=== PATIENT | male | born 1950 | race Native Hawaiian/Other Pacific Islander ===

== ENCOUNTER 2025-03-10 07:35 | Day surgery (SDC) | payer MEDICARE, MEDICAID, SELFPAY ==
--- NOTE | 2025-03-07 07:00 | EKG_ITS ---
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
[2025-03-07 07:04] VITALS: BMI 23.6
[2025-03-07 07:45] LABS: Collection Type, Urine Clean Catch; RBC,Urine 0 /hpf (0-3); Squamous Epithelial Cell,Urine 0 /hpf (0-5)
--- NOTE | 2025-03-07 08:12 | SUR.PREOP ---
Pt speaks [place], no court interpreter available thru the phone court interpreter line or in house court interpreter, pt's family was used as court interpreter.
[2025-03-07 08:38] LABS: Basophils % (Auto) 0 % (0-2.5); Eosinophils # (Auto) 0.2 Thou/mm3 (0.0-0.5); Eosinophils % (Auto) 4 % (0-10); Hematocrit 40.6 % (41.0-53.0); Hemoglobin 13.3 g/dL (13.5-16.0); Immature Granulocytes % (Auto) 0 % (0-0); Immature Granulocytes Auto 0.01 Thou/mm3 (0.00-0.00); Lymphocytes # (Auto) 2.2 Thou/mm3 (1.0-4.8); Lymphocytes % (Auto) 41 % (10-50); Mean Corpuscular HGB Conc 32.8 g/dl (31.0-37.0); Mean Corpuscular Hemoglobin 27.4 pg (25.0-35.0); Mean Corpuscular Volume 84 fL (80-100); Monocytes # (Auto) 0.4 Thou/mm3 (0.0-0.8); Monocytes % (Auto) 8 % (0-12); Neutrophils # (Auto) 2.5 Thou/mm3 (1.8-7.7); Neutrophils % (Auto) 47 % (37-80); Nucleated Red Blood Cell % 0 /100 WBC (0); Platelet Count 241 Thou/mm3 (140-440); RDW Standard Deviation 41.9 fL (35.1-43.9); Red Blood Count 4.85 Miln/mm3 (4.50-5.90); White Blood Count 5.4 Thou/mm3 (3.8-10.6)
[2025-03-07 08:45] LABS: Bilirubin,Urine Negative (Negative); Blood,Urine Negative (Negative); Clarity,Urine Clear (Clear/Hazy); Color,Urine Colorless (Lt Yel-Yel); Glucose, Urine Negative (Negative); Ketones,Urine Negative (Negative); Leukocyte Esterase,Urine Negative (Negative); Nitrite,Urine Negative (Negative); PH,Urine 7.5 (5.0-7.0); Protein,Urine Negative (Neg - Trace); Specific Gravity,Urine 1.009 (1.001-1.035); Urobilinogen,Urine Negative mg/dL (0.0-1.0); WBC,Urine < 1 /hpf (0-5)
[2025-03-07 08:50] LABS: Alanine Aminotransferase 15 U/L (10-49); Albumin, Serum 4.5 gm/dL (3.4-4.8); Albumin/Globulin Ratio 1.3 (1.2-2.2); Alkaline Phosphatase 58 U/L (46-116); Anion Gap 6 (7-16); Aspartate Amino Transferase 26 U/L (0-34); BUN/Creatinine Ratio 10 Ratio (12-20); Bilirubin,Total 0.8 mg/dL (0.3-1.2); Blood Urea Nitrogen 13 mg/dL (9-23); Calcium 9.9 mg/dL (8.3-10.6); Calcium (Corrected) 9.9 mg/dL (8.5-10.1); Carbon Dioxide 28.7 mMol/L (20.0-31.0); Chloride 101 mMol/L (98-107); Creatinine (Component) 1.3 mg/dL (0.6-1.3); Globulin 3.4 gm/dL (2.3-3.5); Glucose 112 mg/dL (74-106); Osmolality,Calculated 273 (275-295); Sodium 136 mMol/L (136-145); Total Protein 7.9 gm/dL (5.7-8.2); eGFR 57 See Note
[2025-03-10] VITALS (7 sets, daily range): BP systolic 122–161; BP diastolic 70–84; PULSE 72–83; RESP 12–17; TEMP 36.4–36.8; O2SAT 99–100; BMI 23.5
--- NOTE | 2025-03-10 07:43 | ESHP_ITS ---
RE: DELFINA العلي : 1950 DATE OF ADMISSION: 03/09/2025 HISTORY OF PRESENT ILLNESS: The patient is a 75-year-old male who was referred to me with a history of elevated PSA of 6.9. He has nocturia 3 to 5 times. He has a slow urinary stream. There is no history of gross hematuria. He has some burning. PAST MEDICAL HISTORY: There is no history of diabetes mellitus. He has a history of hypertension. PAST SURGICAL HISTORY: None. HOME MEDICATIONS: He takes 1. Losartan. 2. Finasteride. 3. Pantoprazole. ALLERGIES: NONE KNOWN. SOCIAL HISTORY: He has 4 children. PHYSICAL EXAMINATION: HEENT: Normal. NECK: Supple. LUNGS: Clear. CARDIOVASCULAR: Heart sounds are normal. ABDOMEN: Soft without any organomegaly. No guarding, no rigidity. GENITOURINARY: Phallus is normal. Testes are down in scrotum. RECTAL: Moderately enlarged prostate with some firmness in the right prostatic lobe. EXTREMITIES: Normal. The patient's serum creatinine is 1.43. IMPRESSION: 1. Prostatism. 2. Prostatic obstruction. 2. Elevated PSA of 6.9. PLAN: Cystoscopy, transrectal prostatic ultrasound with ultrasound-guided prostatic needle biopsy. Planned procedure, risks, and complications have been discussed with the patient. The patient has understood them and agreed to proceed. Thank you very much for your kind referral. cc: [facility] DT: 09:22:14 TT: 10:29:00 Ref: [id number] - TID: [id number]
--- NOTE | 2025-03-10 07:55 | SUR.PREOP ---
Patient expressed gratitude for prayer before their procedure.
[2025-03-10] MEDS: RINGERS LACTATED 1000 ML 1,000 ML 20 ML IV (08:25)
--- NOTE | 2025-03-10 10:23 | SUR.PHASEII ---
Pt. arrived to recovery via gurney, eyes open, responds to verbal commands, VSS, no c/o pain or nausea at this time, lung sounds clear, equal expansion melecio., no active bleeding rectally. Report received from Ric FLETCHER and Polo RUIZ.
--- NOTE | 2025-03-10 10:46 | SUR.PHASEII ---
1046 Report received from Cecille Navarro RN
--- NOTE | 2025-03-10 10:46 | SUR.PHASEII ---
Gave report on pt. s/p surgery to Rohini Jonas RN. Pt. is AAOx3, VSS, no c/o pain or nausea at this time, pt. meets criteria for discharge.
--- NOTE | 2025-03-10 11:03 | SUR.PHASEII ---
1103 Patient meets discharge criteria from recovery, awake and alert, breathing unlabored, vital signs stable, denies pain, drinking water; tolerating well, denies nausea, patient assisted with dressing into his clothing by his daughter, patient signed limited proficiency statement for his daughter to interpreter deaf Bela to him, discharge instructions given to patient and patients daughter with daughter interpreting, patients daughter signed discharge instructions. Patient given all his belongings prior to discharge, transported via wheelchair and left in a private vehicle.
--- NOTE | 2025-03-10 13:26 | ESOP_ITS ---
RE: DELFINA العلي : 1950 DATE OF OPERATION: 03/10/2025 PREOPERATIVE DIAGNOSES: Prostatism, prostatic obstruction, elevated PSA of 6.9. POSTOPERATIVE DIAGNOSES: Prostatism, prostatic obstruction, elevated PSA of 6.9. PROCEDURE PERFORMED: Cystoscopy, urethral dilatation, transrectal prostatic ultrasound with ultrasound-guided prostatic needle biopsy. ANESTHESIA: Monitored anesthesia by Mr. Mejia. INDICATION: The patient is a 75-year-old [place] gentleman with an elevated PSA of 6.9. He has nocturia 3 to 5 times. Rectally, he has a moderately sized prostate with some firmness in the right prostatic lobe. The patient was now scheduled to have cystoscopy and transrectal prostatic ultrasound with ultrasound-guided prostatic needle biopsy. Planned procedure, risks, and complications have been discussed with the patient and his daughter. They have understood them and agreed to proceed. DESCRIPTION OF PROCEDURE: After the patient was brought to the operating table under adequate monitored anesthesia and supine position, parts were prepped and draped in the lithotomy position. Parts were prepped and draped in a sterile fashion. A cystoscopy was then carried out, which revealed adequate urethral meatus, normal-appearing urethra, moderately enlarged bilobed prostate with some median lobe enlargement. Residual urine 4 ounces, yellow and clear, and was sent for culture and sensitivity examination. There are no intravesical stones or tumors. There is some outpouching of the bladder on the dome. Scope was withdrawn. The urethra was dilated. The patient was then turned in left lateral position. Transrectal prostatic ultrasound was carried out. Biopsies were obtained from both lobes. Using ultrasound guidance, prostatic volume was measured at 31.9 cubic cm. The patient tolerated the entire procedure well and left the room in good condition. PLAN: We will await the biopsy report. DT: 10:34:41 TT: 13:25:00 Ref: [id number] - TID: [id number]
== END 2025-03-10 11:03 | disposition home or self-care (01) ==
PROVIDERS: Anesthesiology; PCP Family Medicine; Referring Provider Surgery; Visit Provider Surgery
PROC: (CPT 55700; principal; 2025-03-10 09:45)
PROC: 0TJB8ZZ Inspection of Bladder, Via Natural or Artificial Opening Endoscopic (ICD-10-PCS; CPT 52000; 2025-03-10 09:45)
DX: N40.1 Benign prostatic hyperplasia with lower urinary tract symptoms (principal); I10 Essential (primary) hypertension; Z01.810 Encounter for preprocedural cardiovascular examination; R97.20 Elevated prostate specific antigen [PSA]
CPT/HCPCS: 52281; 55700; 36415; 76942; 80053; 81001; 85025; 87086; 93005; A4217; A4649; J0694; J2250; J3010; J7120

== ENCOUNTER 2025-03-11 19:58 | Inpatient (IN) | payer MEDICARE, MEDICAID, SELFPAY ==
[2025-03-11 20:02] VITALS: BMI 23.6
--- NOTE | 2025-03-11 20:21 | EKG_ITS ---
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
--- NOTE | 2025-03-11 20:21 | XR_ITS ---
Examination: PA lateral chest 2 views Technique: Upright PA lateral chest 2 views Exam date and time: March 11, 20252045 hrs. Comparison January 01, 2021 Indications: Shortness of breath fever chills today Findings: Mild prominence left ventricle No pneumonia or pulmonary edema The osseous structures are intact Impression: No active disease
--- NOTE | 2025-03-11 20:21 | PD.EDRME ---
Rapid Medical Screening Exam RME Arrival date/time: 03/11/25 19:58 75 yo m present to ED for c/o sob, chills, recent prostate bx I have greeted and performed a focused initial assessment of this patient. A comprehensive ED assessment and evaluation of the patient, analysis of all test results, and completion of the medical decision making process will be conducted by additional ED providers. Chief Complaint: Shortness of Breath/Dyspnea Time Seen by Provider: 03/11/25 20:19
[2025-03-11 20:22] VITALS: BP 162/52; PULSE 94; RESP 19; TEMP 37.4; O2SAT 96
--- NOTE | 2025-03-11 20:52 | PC.NURSE ---
pt came in because of shaking, sob with some chest pain. pt has a prostate biopsy yesterday. denies any fever at home. pt states with sob pain 5/10. pt present with daughter at bedside
[2025-03-11 20:54] LABS: Basophils % (Auto) 0 % (0-2.5); Eosinophils # (Auto) 0.1 Thou/mm3 (0.0-0.5); Eosinophils % (Auto) 1 % (0-10); Hematocrit 36.9 % (41.0-53.0); Hemoglobin 11.8 g/dL (13.5-16.0); Immature Granulocytes % (Auto) 0 % (0-0); Immature Granulocytes Auto 0.03 Thou/mm3 (0.00-0.00); Lymphocytes # (Auto) 0.7 Thou/mm3 (1.0-4.8); Lymphocytes % (Auto) 7 % (10-50); Mean Corpuscular Hemoglobin 27.5 pg (25.0-35.0); Mean Corpuscular Volume 86 fL (80-100); Monocytes # (Auto) 0.2 Thou/mm3 (0.0-0.8); Monocytes % (Auto) 2 % (0-12); Neutrophils % (Auto) 90 % (37-80); Nucleated Red Blood Cell % 0 /100 WBC (0); Platelet Count 165 Thou/mm3 (140-440); RDW Standard Deviation 42.4 fL (35.1-43.9); Red Blood Count 4.29 Miln/mm3 (4.50-5.90)
[2025-03-11 20:55] LABS: Lactate (Lactic Acid) 1.2 mMol/L (0.4-2.0)
[2025-03-11 21:22] VITALS: TEMP 37.9
[2025-03-11] MEDS: SODIUM CHLORIDE 0.9% 1000 ML 1,000 ML 999 ML IV (21:24)
[2025-03-11 21:36] VITALS: TEMP 37.9
[2025-03-11 21:36] LABS: Alanine Aminotransferase 10 U/L (10-49); Albumin, Serum 4.2 gm/dL (3.4-4.8); Albumin/Globulin Ratio 1.4 (1.2-2.2); Alkaline Phosphatase 55 U/L (46-116); Anion Gap 6 (7-16); Aspartate Amino Transferase 19 U/L (0-34); BUN/Creatinine Ratio 9 Ratio (12-20); Bilirubin,Total 0.6 mg/dL (0.3-1.2); Blood Urea Nitrogen 12 mg/dL (9-23); Calcium 9.2 mg/dL (8.3-10.6); Calcium (Corrected) 9.2 mg/dL (8.5-10.1); Carbon Dioxide 25.7 mMol/L (20.0-31.0); Chloride 104 mMol/L (98-107); Creatinine (Component) 1.3 mg/dL (0.6-1.3); Globulin 3.1 gm/dL (2.3-3.5); Glucose 99 mg/dL (74-106); Osmolality,Calculated 271 (275-295); Potassium 4.4 mMol/L (3.4-5.1); Procalcitonin 0.12 ng/ml (0.0-0.49); Sodium 136 mMol/L (136-145); Total Protein 7.3 gm/dL (5.7-8.2); eGFR 57 See Note
[2025-03-11] MEDS: ACETAMINOPHEN 325 MG TABLET 650 MG PO (21:36)
[2025-03-11 21:37] LABS: Troponin I < 0.020 ng/mL (0.0-0.045)
--- NOTE | 2025-03-11 21:42 | PD.EDSOB ---
ED SOB =RME/HPI General Chief Complaint: Shortness of Breath/Dyspnea Stated Complaint: DYSPNEA Time Seen by Provider: 03/11/25 20:19 Arrival date/time: 03/11/25 19:58 Limitations: no limitations RME / HPI RME / HPI Narrative: 03/11/25 19:58 75 yo m present to ED for c/o sob, chills, recent prostate bx I have greeted and performed a focused initial assessment of this patient. A comprehensive ED assessment and evaluation of the patient, analysis of all test results, and completion of the medical decision making process will be conducted by additional ED providers. Dr. Lee's Main ED Evaluation: 75yo male with a history of HTN, GERD, BPH presents to the ED for a chief complaint of chills and shakiness x 1900. Patient had a prostate biopsy yesterday. Family states the patient was running errands today when he started having shakiness and was unable to hold anything. Patient has been eating normally, but he started having chest pain shortly after the shakiness started. Endorses associated dysuria, but no excessive hematuria. Denies any fever, chills, N/V or any other associated symptoms. No known allergies. Patient is on Cipro, reporting he takes his last dose tomorrow. Related Data Home Medications ?Medication ?Instructions ?Recorded ?Confirmed ciprofloxacin HCl 500 mg tablet 500 mg PO BID 03/07/25 03/11/25 (Cipro) finasteride 5 mg tablet 5 mg PO DAILY 03/07/25 03/11/25 losartan 50 mg tablet 50 mg PO DAILY 03/07/25 03/11/25 pantoprazole 40 mg tablet,delayed 40 mg PO QAM 03/07/25 03/11/25 release (Protonix) acetaminophen 500 mg tablet 1,000 mg PO Q6H PRN pain 03/11/25 03/11/25 Allergies Allergy/AdvReac Type Severity Reaction Status Date / Time No Known Allergies Allergy Verified 03/10/25 08:25 Review of Systems Review of Systems Systems Reviewed: All systems reviewed, normal except as documented Past Medical History Past Medical History NEUROLOGIC: Negative Neurological Disorders or Seizures CARDIAC: Positive Cardiac Disorders and Hypertension; Negative Congestive Heart Failure RESPIRATORY: Positive Tuberculosis (1999 got treated); Negative Chronic Obstructive Pulmonary Disease (COPD) GASTROINTESTINAL: Positive Gastrointestinal Disorders and Gastroesophageal Reflux Disease; Negative Hepatitis GENITOURINARY: Positive Genitourinary Disorders and Benign Prostatic Hyperplasia; Negative Renal Disease MUSCULOSKELETAL: Positive Musculoskeletal Disorders ENT: Positive Cataracts ENDOCRINE: Negative Endocrine Disorders, Diabetes Mellitus Type 1 or Diabetes Mellitus Type 2 HEMATOLOGIC: Negative Blood Disorders OTHER HISTORY: Positive Hospitalization (Tuberculosis 1979), Shingles and Chicken Pox; Negative Autoimmune Disease, Blood Transfusions or Cancer Family History FAMILY HISTORY: Positive Family Cancer and Family Surgery; Negative Family Psychiatric Problems, Family Respiratory Disorders, Family Cardiac Disorders, Family Gastrointestinal Problems or Family Anesthesia Reaction Social History SMOKING STATUS: Never smoker ED Exam General Limitations: Present no limitations General appearance: Present alert and in no apparent distress Head Head exam: Present atraumatic Eye Eye exam: Present normal appearance, PERRL and EOMI ENT ENT exam: Present normal oropharynx and mucous membranes dry Neck Neck exam: Present normal inspection, full ROM and trachea midline Chest Chest inspection: Present normal inspection and symmetric chest wall rise Respiratory Respiratory exam: Present normal lung sounds bilaterally Cardiovascular Cardiovascular exam: Present regular rate, normal rhythm and normal heart sounds Abdominal Exam Abdominal exam: Present soft and normal bowel sounds Extremities Exam Extremities exam: Present normal inspection and full ROM Back Exam Back exam: Present normal inspection and full ROM Neurological Exam Neurological exam: Present alert, oriented X3, CN II-XII intact and other (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 Quality Measures none Orders Category Date Time Status Bedside Influenza A&B Antigen Test NOW Care 03/11/25 20:21 Completed EKG (ED ONLY) *Do not use* NOW Care 03/11/25 20:21 Completed EKG (ED Only) Stat Exams 03/11/25 20:21 Draft XR chest 2V Stat Exams 03/11/25 20:21 Completed Blood Culture (Lab) Stat Lab 03/11/25 20:40 Received CBC Stat Lab 03/11/25 20:40 Completed CMP [Comprehensive Metabolic Panel] Stat Lab 03/11/25 20:40 Completed Lactic Acid [Lactate (Lactic Acid)] Stat Lab 03/11/25 20:22 Completed Procalcitonin Stat Lab 03/11/25 20:40 Completed Troponin I Stat Lab 03/11/25 20:40 Completed UA [Urinalysis] Stat Lab 03/11/25 21:45 Completed Acetaminophen Tab [Tylenol Tab] Med 03/11/25 21:29 Discontinued 650 mg PO X1 ONE Ketorolac Inj [Toradol Inj] Med 03/11/25 22:56 Discontinued 15 mg IVP X1 ONE Sodium Chloride 0.9% 1000 ml [Ns] 1,000 ml Med 03/11/25 21:12 Discontinued IV 999 mls/hr Sodium Chloride 0.9% 1000 ml [Ns] 1,000 ml Med 03/11/25 23:42 Active IV 999 mls/hr Vital Signs Vital signs: Vital Signs Temperature 99.3 F 03/11/25 20:22 Pulse Rate 94 03/11/25 20:22 Respiratory Rate 19 03/11/25 20:22 Blood Pressure 162/52 H 03/11/25 20:22 Pulse Oximetry (%) 96 03/11/25 20:22 Oxygen Delivery Method Room Air 03/11/25 20:22 Shortness of Breath / Dyspnea MDM Narrative MDM Narrative:: Scribe Attestation: 03/11/25 - Teodora eMndes am scribing for and in the presence of Dr. Lee. 2341: Patient states he feels better. His temperature is down to 99.1 after receiving Toradol. Pending consultation with Dr. York, who did the patient's biopsy. 2343: Discussed case with Dr. York from urology regarding consultation. Discussed patients ED course, exam findings, labs, and radiology results. States to admit the patient and start him on Zosyn. 2345: Discussed case with Dr. Parker from Hospitalist service regarding admission. Discussed patients ED course, exam findings, labs, and radiology results. The Hospitalist [agrees] to accept the patient for admission. Patient data External records reviewed:: [facility] previous records (Per chart review, patient was seen here on 08/28/18 for dehydration.) Clinical information provided by:: patient Social determinants that could affect healthcare access:: none Patient has the following chronic illnesses:: HTN, GERD, BPH How is presenting disease/condition affected by chronic disease/condition?: uneffected by Evaluation data The following diagnostics were reviewed and interpreted by me:: lab results, radiology exam(s) and EKG tracing(s) Lab and/or radiology exams considered but not ordered:: none Interpretation Summary: WBC count is normal, CMP is normal, Troponin is normal, Lactic Acid is normal, Procalcitonin is normal, UA shows 5598 RBCs, according to my interpretation. EKG done at 2104, NSR, rate of 89, 1st degree AV block, no ST elevations or depressions, no STEMI, according to my interpretation. [facility] Report Signed Patient: DELFINA العلي. Record#: [id number] Birthdate: 1950 Age/Sex: 75 / M [facility] Att[facility] Dr: Ordering Physician: Vaughn Coleman PA-C Date of Service: 03/11/25 Procedure(s): XR chest 2V Accession Number(s): [id number] cc: Michael Michaels MD; Vaughn Coleman PA-C~ Examination: PA lateral chest 2 views Technique: Upright PA lateral chest 2 views Exam date and time: March 11, 20256 hrs. Comparison January 01, 2021 Indications: Shortness of breath fever chills today Findings: Mild prominence left ventricle No pneumonia or pulmonary edema The osseous structures are intact Impression: No active disease Dictated By: Michael Michaels MD Signed By: <Electronically signed by Michael Michaels MD in OV> 03/11/252050 Medications / Prescriptions Medications or Prescriptions considered but not ordered:: none Medication administrations:: Medication Administration History Sodium Chloride (Ns) 1,000 mls @ 999 mls/hr IV .Q1H1M ONE Stop: 03/12/25 00:42 Discontinued Medications Acetaminophen (Acetaminophen 325 Mg Tablet) 650 mg PO X1 ONE Stop: 03/11/25 21:30 Last Admin: 03/11/25 21:36 Dose: 650 mg Documented By: BD Sodium Chloride (Ns) 1,000 mls @ 999 mls/hr IV .Q1H1M ONE Stop: 03/11/25 22:12 Last Infusion: 03/11/25 22:53 Dose: Infused Documented By: Admin: 03/11/25 21:24 Dose: 999 mls/hr Documented By: BD Ketorolac Tromethamine (Ketorolac Inj 30 Mg/Ml Vial) 15 mg IVP X1 ONE Stop: 03/11/25 22:57 Last Admin: 03/11/25 23:00 Dose: 15 mg Documented By: AMBER see above Consultations Consultation(s) initiated? (list below): Yes Consultation #1 (Physician, Specialty, Details): See MDM. Diagnosis Shortness of Breath Differential Diagnosis: other (UTI, dehydration, occult bacteremia) Most likely diagnosis given after review of the tests above:: see clinical impression below Admission Indicated Admission indicated?: indicated Admission Request Was there a request for admission?: Yes Admission Attestation Admission request attestation: Discussed case with [] from Hospitalist service regarding admission. Discussed patients ED course, exam findings, labs, and radiology results. The Hospitalist [agrees,declines] to accept the patient for admission. Disposition Plan Disposition Plan: Admit Discharge Plan Plan Patient Disposition: Admit Acute Care w/in Hospital Disposition Comment: Admitted to Dr. Parker Prescriptions/Referrals Prescriptions/Med Rec: No Action losartan 50 mg tablet 50 mg PO DAILY Patient Comments: TAKE 1 TABLET BY MOUTH EVERY DAY FOR 90 DAYS pantoprazole [Protonix] 40 mg tablet,delayed release (DR/EC) 40 mg PO QAM finasteride 5 mg tablet 5 mg PO DAILY Patient Comments: TAKE 1 TABLET BY MOUTH EVERY DAY FOR 90 DAYS ciprofloxacin HCl [Cipro] 500 mg tablet 500 mg PO BID acetaminophen 500 mg tablet 1,000 mg PO Q6H PRN (Reason: pain) Patient Comments: TAKE 1 TABLET BY MOUTH EVERY 6 HOURS NEEDED FOR 7 DAYS Referrals: Toby Rhodes MD [Primary Care Provider] - In 1 week Problem List Clinical Impression: UTI (urinary tract infection), Fever, Fever postop Patient/Caregiver Discharge Instructions Print Language: fatuma ronquillo) Stand Alone Forms: [facility]ana Award Info., Patient Portal Info Letter
[2025-03-11 22:00] LABS: Collection Type, Urine Voided
[2025-03-11 22:09] LABS: Bilirubin,Urine Negative (Negative); Blood,Urine 3+ (Negative); Clarity,Urine Turbid (Clear/Hazy); Color,Urine Brown (Lt Yel-Yel); Glucose, Urine Negative (Negative); Ketones,Urine Negative (Negative); Leukocyte Esterase,Urine Positive (Negative); Nitrite,Urine Negative (Negative); PH,Urine 6.5 (5.0-7.0); Protein,Urine Trace (Neg - Trace); RBC,Urine 5598 /hpf (0-3); Specific Gravity,Urine 1.011 (1.001-1.035); Squamous Epithelial Cell,Urine 1 /hpf (0-5); Urobilinogen,Urine Negative mg/dL (0.0-1.0); WBC,Urine 8 /hpf (0-5)
[2025-03-11 22:53] VITALS: TEMP 38.6
--- NOTE | 2025-03-11 22:56 | PC.NURSE ---
pt temp 101.5 notified provider buck
[2025-03-11 23:00] VITALS: BP 145/76; PULSE 93; RESP 18; TEMP 37.3; TEMP 38.6; O2SAT 96
[2025-03-11] MEDS: KETOROLAC INJ 30 MG/ML VIAL 15 MG IVP (23:00)
[2025-03-12] VITALS (9 sets, daily range): BP systolic 111–163; BP diastolic 50–70; PULSE 63–98; RESP 17–20; TEMP 36.3–38.2; O2SAT 92–96; BMI 24.8
[2025-03-12] MEDS: PIPER/TAZO 3.375 GM PREMIX 3.375 GM/50 ML BAG IV ×4 (00:12→21:22)
[2025-03-12] MEDS: SODIUM CHLORIDE 0.9% 1000 ML 1,000 ML 999 ML IV (00:13)
--- NOTE | 2025-03-12 00:17 | EVENTNT_ITS ---
Documentation for date of: 03/12/25 Event Note Event Note: A 75-year-old male presented to the ER with the chief complaint of chills and whole-body shakiness. Symptoms began around 7 PM on Thursday, the day after undergoing a transrectal ultrasound-guided prostate biopsy for an elevated PSA of 6.9. According to family, the patient was in usual health earlier in the day and developed shaking approximately two hours after returning from [facility]. The shaking was significant enough to cause him difficulty holding a cup. He also reported mild generalized weakness. He had been taking ciprofloxacin before and after the biopsy as prophylaxis. The patient has a history of HTN, BPH, and GERD. Current medications include Ciprofloxacin, Finasteride, Losartan, and Pantoprazole. He does not smoke, drink alcohol, or use recreational drugs. He has no prior surgical history and no known drug allergies. He is independent in activities of daily living. This is his second hospital visit in over two decades in the [place] In the ER, vital signs recorded as temp 101.5 ?F, HR 94 bpm, RR 19, BP 162/52 mmHg. Labs showed WBC 10, Hgb 11.8, Plt 165, Na 136, K 4.4, BUN 12, Cr 1.3, and Procalcitonin 0.12. Urinalysis revealed brown urine with WBC 8 and RBC 5598. Urology was consulted and the patient was admitted. #Sepsis (post-TRUS biopsy) Assessment: Fever (101.5 ?F), chills, shaking, post-procedural state; mild leukocytosis (WBC 10), hematuria (UA RBC 5598), pyuria (WBC 8), borderline elevated Cr (1.3), Procalcitonin 0.12 Plan: - Initiate broad-spectrum IV antibiotics - Obtain blood cultures and urine culture - IV hydration - Urology to follow for post-TRUS infectious complication - Monitor for urinary retention or abscess formation #Hypertension Assessment: Chronic; elevated BP on presentation (162/52) without acute end- organ damage Plan: - Continue home losartan #Benign Prostatic Hyperplasia Assessment: Chronic; history of finasteride use, recent TRUS biopsy Plan: - Continue finasteride - Monitor for urinary symptoms, retention, or hematuria
[2025-03-12] MEDS: SODIUM CHLORIDE 0.9% 1000 ML 1,000 ML 75 ML IV (02:07)
--- NOTE | 2025-03-12 02:10 | PD.RESHP ---
Documentation for date of: 03/12/25 HPI History of Present Illness Chief complaint: Chills and shakiness History of present illness: HPI: A 75-year-old male [place]an patient with past medical history of hypertension, GERD, BPH, presented to the ED due to chills and shakiness started at 7 PM on 11 March 2025. His daughter which work at the hospital a RETURN CLERK patient that on Thursday patient underwent prostate biopsy by Dr. York. Other than mild pain and bloody urine patient tolerated the procedure well. However today patient started to feel generalized weakness and severe shakiness. Few hours before presentation patient started to develop low-grade fever. Denied any cough SOB or abdominal pain. In the ER, vital signs recorded as temp 101.5 ?F, HR 94 bpm, RR 19, BP 162/52 mmHg. Labs showed WBC 10, Hgb 11.8, Plt 165, Na 136, K 4.4, BUN 12, Cr 1.3 whcih is his baseline, and Procalcitonin Normal. Urinalysis revealed [place] urine with WBC 8 and RBC 5598. EKG showed 1st degree heart block, CXR was within NML limits, Urology was consulted and the patient was admitted. PMH: As above PSX: As Above Social hx: Alcohol:Denied Tobacco:Denied Illicit drugs:Denied Allergies:NKDA Review of Systems Review of Systems Systems Reviewed: All systems reviewed, normal except as documented Exam Vital Signs Temp Pulse Resp BP Pulse Ox O2 Del Method 99.1 F 93 18 145/76 H 96 Room Air 03/12/25 00:01 03/11/25 23:00 03/11/25 23:00 03/11/25 23:00 03/11/25 23:00 03/11/25 23:00 Narrative Exam GEN: AOx3, able to speak full sentences HEENT: NC/AC, PERRLA, oral mucosa moist, neck supple CVS: RRR, S1-S2 present, no murmurs appreciated RESP: CTAB GI: soft,non distended, Mild Suprapubic tenderness, NBS MSK: able to move all 4 limbs, no lower extremity edema SKIN: warm and dry NUCLEAR MONITORING TECHNICIAN: CN II-XII and Sensation grossly intact. Results: Labs 03/11/25 20:40 03/11/25 20:40 Labs: Short CBC 03/11/25 Range/Units 20:40 WBC 10.0 D (3.8-10.6) Thou/mm3 Hgb 11.8 L (13.5-16.0) g/dL Hct 36.9 L (41.0-53.0) % Plt Count 165 D (140-440) Thou/mm3 BMP 03/11/25 20:40 Sodium 136 Potassium 4.4 Chloride 104 Carbon Dioxide 25.7 BUN 12 Creatinine 1.3 Glucose 99 Calcium 9.2 Cardiac Enzymes 03/11/25 Range/Units 20:40 Troponin I < 0.020 (0.0-0.045) ng/mL Liver Function 03/11/25 Range/Units 20:40 Total Bilirubin 0.6 (0.3-1.2) mg/dL AST 19 (0-34) U/L ALT 10 (10-49) U/L Alkaline Phosphatase 55 (46-116) U/L Albumin 4.2 (3.4-4.8) gm/dL Urine 03/11/25 Range/Units 21:45 Urine Color Brown A (Lt Yel-Yel) Urine Clarity Turbid A (Clear/Hazy) Urine pH 6.5 (5.0-7.0) Ur Specific [place] 1.011 (1.001-1.035) Urine Protein Trace (Neg - Trace) Urine Glucose (UA) Negative (Negative) Quality Measures Quality Measures none Advance care planning discussed with:: patient and child Medications Home Medications and Allergies Home Medications ?Medication ?Instructions ?Recorded ?Confirmed ?Type ciprofloxacin HCl 500 mg tablet 500 mg PO BID 03/07/25 03/11/25 History (Cipro) finasteride 5 mg tablet 5 mg PO DAILY 03/07/25 03/11/25 History losartan 50 mg tablet 50 mg PO DAILY 03/07/25 03/11/25 History pantoprazole 40 mg tablet,delayed 40 mg PO QAM 03/07/25 03/11/25 History release (Protonix) acetaminophen 500 mg tablet 1,000 mg PO Q6H PRN pain 03/11/25 03/11/25 History Allergies Allergy/AdvReac Type Severity Reaction Status Date / Time No Known Allergies Allergy Verified 03/10/25 08:25 Visit Medications Acetaminophen (Acetaminophen 325 Mg Tablet) 650 mg PO Q6H PRN PRN Reason: Fever >101.5 Stop: 04/11/25 00:09 Hydrocodone Bitart/Acetaminophen (Hydrocodone/Apap 5/325 Tablet) 1 tab PO Q6HR PRN PRN Reason: Pain 4-6 Stop: 03/17/25 01:52 Finasteride (Finasteride 5 Mg Tablet) 5 mg PO QDAY [facility] Stop: 04/11/25 08:59 Hydralazine HCl (Hydralazine Inj 20 Mg/Ml Vial) 10 mg IV Q3H PRN PRN Reason: SBP >180mmHg Stop: 04/11/25 01:59 Sodium Chloride (Ns) 1,000 mls @ 75 mls/hr IV .[id number] [facility] Stop: 04/11/25 00:14 Last Admin: 03/12/25 02:07 Dose: 75 mls/hr Piperacillin/Tazobactam/Dextrose (Zosyn) 3.375 gm in 50 mls @ 100 mls/hr IV Q8HR [facility] Stop: 03/19/25 00:10 Last Admin: 03/12/25 00:21 Dose: Not Given Losartan Potassium (Losartan Potassium 25 Mg Tablet) 50 mg PO QDAY [facility] Stop: 04/11/25 08:59 Ondansetron HCl (Ondansetron Inj 2 Mg/Ml Inj 2 Ml) 4 mg IV Q6HR PRN; Protocol PRN Reason: NAUSEA OR VOMITING Stop: 04/11/25 01:52 Polyethylene Glycol (Polyethylene Glycol 17 Gm Packet) 17 gm PO QDAY [facility] Stop: 04/11/25 08:59 Discontinued Medications Acetaminophen (Acetaminophen 325 Mg Tablet) 650 mg PO X1 ONE Stop: 03/11/25 21:30 Last Admin: 03/11/25 21:36 Dose: 650 mg Sodium Chloride (Ns) 1,000 mls @ 999 mls/hr IV .Q1H1M ONE Stop: 03/11/25 22:12 Last Infusion: 03/11/25 22:53 Dose: Infused Sodium Chloride (Ns) 1,000 mls @ 999 mls/hr IV .Q1H1M ONE Stop: 03/12/25 00:42 Last Infusion: 03/12/25 01:37 Dose: Infused Piperacillin/Tazobactam/Dextrose (Zosyn) 3.375 gm in 50 mls @ 100 mls/hr IV X1 ONE Stop: 03/12/25 00:16 Last Infusion: 03/12/25 00:42 Dose: Infused Ketorolac Tromethamine (Ketorolac Inj 30 Mg/Ml Vial) 15 mg IVP X1 ONE Stop: 03/11/25 22:57 Last Admin: 03/11/25 23:00 Dose: 15 mg Assessment & Plan Plan Summary: A 75-year-old male [place]an patient with past medical history of hypertension, GERD, BPH, presented to the ED due to chills and shakiness started at 7 PM on 11 March 2025. patient that on Thursday patient underwent prostate biopsy by Dr. York. Other than mild pain and bloody urine patient tolerated the procedure well. However today patient started to feel generalized weakness and severe shakiness. Patient was admitted for tx of Sepsis 2/2 to UTI A/P #Sepsis 2/2 UTI # UTI (post-TRUS biopsy) #Hx of Benign Prostatic Hyperplasia Patient has recenty had prostate biopsy as he was found to have PSA level of 6.9 as per bulmaro daughter. Patient satrted to develop severe chills and shakiness on Thursday. Fever 101.5, HR of chills, shaking, post-procedural state; mild leukocytosis WBC 10, hematuria UA RBC 5598, pyuria WBC 8, Procalcitonin 0.12, LA 1.2 history of finasteride use Plan: - Start the patient on Zosyn as per Dr Jung Recstanislav - Obtain blood cultures and urine culture - IV NS 75 mL/H - Urology to follow for post-TRUS biopsy infectious complication - Monitor for urinary retention or abscess formation - Continue finasteride - Monitor for urinary symptoms, retention, or hematuria #Hx of Hypertension Assessment: Chronic; elevated BP on presentation (162/52) without acute end-organ damage Plan: - Continue home losartan - Hydralaine 10mg IV PRN #1st Degree heart block EKG showed sinus tachycardia, however [place] interval was 231. Which indicate first-degree heart block. Plan ? Telemonitoring ? Consider repeating EKG in the morning #CKD Stage 3a Patient unaware of his Kidney function CKD, Noticed to have S.cr of 1.3 which is his basline, eGFR of 57 Plan - Avoid nephrotoxic meds - Consider following up with a certified professional midwife o/p #hx of GERD Plan - Start patient on Pantoprazol 40mg IV qday Hospital Maintenance: FEN:Cardiac diet DVT ppx:SCD GI ppx:Protonix IV lines:PIV Prince:None Code status:F/C Dispo:Med-Tele Patient's plan and care discussed with my attending, Dr. Keith Solis MD Internal Medicine PGY-2 Attending Provider Attestation/Addendum Pt was evaluated and plan formulated together with the housestaff team. I have reviewed the residents note above and agree with most of its content. Please refer to the residents note for additional details.
[2025-03-12 06:12] LABS: Basophils % (Auto) 0 % (0-2.5); Eosinophils % (Auto) 0 % (0-10); Hematocrit 32.9 % (41.0-53.0); Hemoglobin 10.6 g/dL (13.5-16.0); Immature Granulocytes % (Auto) 1 % (0-0); Immature Granulocytes Auto 0.08 Thou/mm3 (0.00-0.00); Lymphocytes # (Auto) 0.3 Thou/mm3 (1.0-4.8); Lymphocytes % (Auto) 2 % (10-50); Mean Corpuscular HGB Conc 32.2 g/dl (31.0-37.0); Mean Corpuscular Hemoglobin 27.8 pg (25.0-35.0); Mean Corpuscular Volume 86 fL (80-100); Monocytes # (Auto) 0.4 Thou/mm3 (0.0-0.8); Monocytes % (Auto) 3 % (0-12); Neutrophils # (Auto) 13.6 Thou/mm3 (1.8-7.7); Neutrophils % (Auto) 95 % (37-80); Nucleated Red Blood Cell % 0 /100 WBC (0); Platelet Count 151 Thou/mm3 (140-440); RDW Standard Deviation 42.5 fL (35.1-43.9); Red Blood Count 3.81 Miln/mm3 (4.50-5.90); White Blood Count 14.4 Thou/mm3 (3.8-10.6)
[2025-03-12 06:22] LABS: Glucose Estimated Average 120 mg/dL (80-131); Hemoglobin A1C 5.8 % Hgb (4.8-6.0)
[2025-03-12 06:41] LABS: Anion Gap 9 (7-16); BUN/Creatinine Ratio 12 Ratio (12-20); Blood Urea Nitrogen 16 mg/dL (9-23); Calcium 8.3 mg/dL (8.3-10.6); Carbon Dioxide 22.7 mMol/L (20.0-31.0); Chloride 106 mMol/L (98-107); Creatinine (Component) 1.3 mg/dL (0.6-1.3); Glucose 120 mg/dL (74-106); Osmolality,Calculated 277 (275-295); Potassium 4.7 mMol/L (3.4-5.1); Sodium 138 mMol/L (136-145); eGFR 57 See Note
[2025-03-12] MEDS: FINASTERIDE 5 MG TABLET PO (08:23)
[2025-03-12] MEDS: POLYETHYLENE GLYCOL 17 GM PACKET PO (08:23)
[2025-03-12] MEDS: LOSARTAN POTASSIUM 25 MG TABLET 50 MG PO (08:23)
--- NOTE | 2025-03-12 10:09 | CHAP ---
Patient was visited by the Spiritual Care Volunteer who prayed for them. (Volunteer was in the hospital from 09:22-10:09.)
--- NOTE | 2025-03-12 15:55 | PD.RESPRO ---
Documentation for date of: 03/12/25 Subjective Subjective Interval history: Patient is seen and examined at bedside. Still complaining of some mild pain in the lower abdomen. Vitals are stable. On physical examination, mild tenderness noted in the hypogastric region Labs showed WBC 14.4, Hb 10.6, creatinine 1.3 Will continue antibiotics for now and cultures are still pending Exam Vital Signs Temp Pulse Resp BP Pulse Ox O2 Del Method 98.1 F 83 17 163/70 H 96 Room Air 03/12/25 12:00 03/12/25 12:00 03/12/25 12:00 03/12/25 12:00 03/12/25 12:00 03/12/25 12:00 Narrative Exam General: Awake. HEENT: Normocephalic, atraumatic, mucous membranes moist. Heart: Regular rate and rhythm, no murmurs. Lungs: Clear to auscultation with no wheezing or crackles. Abdomen: Soft, nondistended, mild tenderness in the hypogastric region, positive bowel sounds. ?No guarding or rebound tenderness. Neurologic: Alert and oriented x3, no gross neurological deficit, and patient able to move all 4 extremities. Extremities: No edema. Skin: No rash or ecchymoses. Objective Labs 03/13/25 04:45 03/13/25 04:45 Labs: Laboratory Results - last 24 hr 03/11/25 03/11/25 03/11/25 20:22 20:40 20:40 WBC 10.0 D RBC 4.29 L Hgb 11.8 L Hct 36.9 L MCV 86 MCH 27.5 MCHC 32.0 RDW Std Deviation 42.4 Plt Count 165 D Neut % (Auto) 90 H Lymph % (Auto) 7 L [place] % (Auto) 2 Eos % (Auto) 1 Baso % (Auto) 0 Neut # (Auto) 9.0 H Lymph # (Auto) 0.7 L [place] # (Auto) 0.2 Eos # (Auto) 0.1 Baso # (Auto) 0.0 Immature Gran # (Auto) 0.03 H Absolute Nucleated RBC 0.00 Immature Gran % 0 Nucleated RBC % 0 Sodium 136 Potassium 4.4 Chloride 104 Carbon Dioxide 25.7 Anion Gap 6 L BUN 12 Creatinine 1.3 Estim Creat Clear Calc 46.0 L eGFR 57 L BUN/Creatinine Ratio 9 L Glucose [address] Glu mg/dL Hemoglobin A1c Calculated Osmolality 271 L Lactic Acid 1.2 Calcium 9.2 Corrected Calcium 9.2 Total Bilirubin 0.6 AST 19 ALT 10 Alkaline Phosphatase 55 Troponin I < 0.020 Total Protein 7.3 Albumin 4.2 Globulin 3.1 Albumin/Globulin Ratio 1.4 Procalcitonin 0.12 Cancelled Ur Collection Type Urine Color Urine Clarity Urine pH Ur Specific [place] Urine Protein Urine Glucose (UA) Urine Ketones Urine Blood Urine Nitrite Urine Bilirubin Urine Urobilinogen (Auto) Ur Leukocyte Esterase Urine RBC Urine WBC Ur Squamous Epith Cells Urine Bacteria 03/11/25 03/12/25 21:45 05:20 WBC 14.4 H D RBC 3.81 L Hgb 10.6 L Hct 32.9 L MCV 86 MCH 27.8 MCHC 32.2 RDW Std Deviation 42.5 Plt Count 151 Neut % (Auto) 95 H Lymph % (Auto) 2 L [place] % (Auto) 3 Eos % (Auto) 0 Baso % (Auto) 0 Neut # (Auto) 13.6 H Lymph # (Auto) 0.3 L [place] # (Auto) 0.4 Eos # (Auto) 0.0 Baso # (Auto) 0.0 Immature Gran # (Auto) 0.08 H Absolute Nucleated RBC 0.00 Immature Gran % 1 H Nucleated RBC % 0 Sodium 138 Potassium 4.7 Chloride 106 Carbon Dioxide 22.7 Anion Gap 9 BUN 16 Creatinine 1.3 Estim Creat Clear Calc 46.0 L eGFR 57 L BUN/Creatinine Ratio [address] Glu mg/dL 120 Hemoglobin A1c 5.8 Calculated Osmolality 277 Lactic Acid Calcium 8.3 Corrected Calcium Total Bilirubin AST ALT Alkaline Phosphatase Troponin I Total Protein Albumin Globulin Albumin/Globulin Ratio Procalcitonin Ur Collection Type Voided Urine Color Brown A Urine Clarity Turbid A Urine pH 6.5 Ur Specific [place] 1.011 Urine Protein Trace Urine Glucose (UA) Negative Urine Ketones Negative Urine Blood 3+ A Urine Nitrite Negative Urine Bilirubin Negative Urine Urobilinogen (Auto) Negative Ur Leukocyte Esterase Positive Urine RBC 5598 H Urine WBC 8 H Ur Squamous Epith Cells 1 Urine Bacteria None Quality Measures Quality Measures none Advance care planning discussed with:: patient Assessment & Plan Assessment Current Active Medications: Generic Name Dose Route Start Last Admin Trade Name Freq PRN Reason Stop Dose Admin Acetaminophen 650 mg 03/12/25 00:10 Acetaminophen 325 Mg Tablet PO 04/11/25 00:09 Q6H PRN Fever >101.5 Hydrocodone Bitart/Acetaminophen 1 tab 03/12/25 01:53 Hydrocodone/Apap 5/325 Tablet PO 03/17/25 01:52 Q6HR PRN Pain 4-6 Finasteride 5 mg 03/12/25 09:00 03/12/25 08:23 Finasteride 5 Mg Tablet PO 04/11/25 08:59 5 mg QDAY SUN Administration Hydralazine HCl 10 mg 03/12/25 01:53 Hydralazine Inj 20 Mg/Ml Vial IV 04/11/25 01:59 Q3H PRN SBP >180mmHg Sodium Chloride 1,000 mls @ 75 mls/hr 03/12/25 00:15 03/12/25 02:07 Ns IV 04/11/25 00:14 75 mls/hr .[id number] SUN Administration Piperacillin/Tazobactam/Dextrose 3.375 gm in 50 mls @ 100 mls/hr 03/12/25 00:11 03/12/25 13:51 Zosyn IV 03/19/25 00:10 100 mls/hr Q8HR SUN Administration Losartan Potassium 50 mg 03/12/25 09:00 03/12/25 08:23 Losartan Potassium 25 Mg Tablet PO 04/11/25 08:59 50 mg QDAY SUN Administration Ondansetron HCl 4 mg 03/12/25 01:53 Ondansetron Inj 2 Mg/Ml Inj 2 Ml IV 04/11/25 01:52 Q6HR PRN NAUSEA OR VOMITING Protocol Polyethylene Glycol 17 gm 03/12/25 09:00 03/12/25 08:23 Polyethylene Glycol 17 Gm Packet PO 04/11/25 08:59 17 gm QDAY SUN Administration Plan A 75-year-old male [place] patient with past medical history of hypertension, GERD, BPH, presented to the ED due to chills and shakiness started at 7 PM on 11 March 2025. patient that on Thursday patient underwent prostate biopsy by Dr. York. Other than mild pain and bloody urine patient tolerated the procedure well. However today patient started to feel generalized weakness and severe shakiness. Patient was admitted for tx of Sepsis 2/2 to UTI #Sepsis 2/2 UTI # UTI (post-TRUS biopsy) #Hx of Benign Prostatic Hyperplasia Patient has recenty had prostate biopsy as he was found to have PSA level of 6.9 as per daughter. Patient started to develop severe chills and shakiness on Thursday. Fever 101.5, HR of chills, shaking, post-procedural state; mild leukocytosis WBC 10, hematuria UA RBC 5598, pyuria WBC 8, Procalcitonin 0.12, LA 1.2 history of finasteride use Plan: - Start the patient on Zosyn as per Dr Jaylen Heath - Obtain blood cultures and urine culture - Urology to follow for post-TRUS biopsy infectious complication - Continue finasteride #Hx of Hypertension Assessment: Chronic; elevated BP on presentation (162/52) without acute end-organ damage Plan: - Continue home losartan - Hydralaine 10mg IV PRN #1st Degree heart block EKG showed sinus tachycardia, however [place] interval was 231. Which indicate first-degree heart block. #CKD Stage 3a Patient unaware of his Kidney function CKD, Noticed to have S.cr of 1.3 which is his basline, eGFR of 57 Plan - Avoid nephrotoxic meds - Consider following up with a superintendent distribution o/p #hx of GERD Plan - Start patient on Pantoprazole 40mg IV qday Hospital Maintenance: FEN:Cardiac diet DVT ppx:SCD GI ppx:Protonix IV lines:PIV Prince:None Code status:F/C Dispo:Med-Tele Patient plan of care was discussed with the attending physician, Dr. Everardo Grigsby, PGY1 Attending Provider Attestation/Addendum I attest that I was physically present for the evaluation, physical examination, lab and imaging review of the patient with the residents. I discussed the case with the residents and agree with the findings and plans of care as documented above. Patient is a 75 years old male with past medical history of hypertension, GERD, BPH who presented to the ED with chills and shakiness.? Patient recently underwent prostate biopsy with urology on 03/10/2025.? Patient was then admitted overnight for management of sepsis secondary to UTI in setting of recent urological procedure.? We will continue IV antibiotics, Zosyn.? Patient is on IV fluid.? Cultures are pending, awaiting urology recommendations. Sharita Mcgee MD
[2025-03-12] MEDS: ACETAMINOPHEN 325 MG TABLET 650 MG PO (23:26)
--- NOTE | 2025-03-12 23:35 | PC.NURSE ---
called Dr. Nelson regarding patient having a temperature of 100.8 oral, chills, c/o pain in upper back below the neck that strated when he had the chills. Patient also having bloody urine states little pain when urinating. Patient given tylenol PO for fever and cooling measures. Will reassess patient's temperature and pain, no other new orders received.
[2025-03-13] VITALS (10 sets, daily range): BP systolic 120–158; BP diastolic 56–77; PULSE 52–78; RESP 18–19; TEMP 36.2–38.2; O2SAT 96–98
[2025-03-13 05:34] LABS: Basophils % (Auto) 0 % (0-2.5); Eosinophils % (Auto) 0 % (0-10); Hematocrit 33.6 % (41.0-53.0); Immature Granulocytes % (Auto) 0 % (0-0); Immature Granulocytes Auto 0.04 Thou/mm3 (0.00-0.00); Lymphocytes # (Auto) 0.8 Thou/mm3 (1.0-4.8); Lymphocytes % (Auto) 8 % (10-50); Mean Corpuscular HGB Conc 32.7 g/dl (31.0-37.0); Mean Corpuscular Hemoglobin 26.8 pg (25.0-35.0); Mean Corpuscular Volume 82 fL (80-100); Monocytes # (Auto) 0.7 Thou/mm3 (0.0-0.8); Monocytes % (Auto) 7 % (0-12); Neutrophils # (Auto) 8.6 Thou/mm3 (1.8-7.7); Neutrophils % (Auto) 85 % (37-80); Nucleated Red Blood Cell % 0 /100 WBC (0); Platelet Count 127 Thou/mm3 (140-440); RDW Standard Deviation 41.1 fL (35.1-43.9); White Blood Count 10.1 Thou/mm3 (3.8-10.6)
[2025-03-13] MEDS: PIPER/TAZO 3.375 GM PREMIX 3.375 GM/50 ML BAG IV ×3 (05:35→22:06)
[2025-03-13 05:50] LABS: Anion Gap 6 (7-16); BUN/Creatinine Ratio 11 Ratio (12-20); Blood Urea Nitrogen 15 mg/dL (9-23); Calcium 8.7 mg/dL (8.3-10.6); Carbon Dioxide 24.7 mMol/L (20.0-31.0); Chloride 106 mMol/L (98-107); Creatinine (Component) 1.4 mg/dL (0.6-1.3); Estimated Creatinine Clearance 42.8 mL/min (>60); Glucose 117 mg/dL (74-106); Osmolality,Calculated 275 (275-295); Potassium 3.9 mMol/L (3.4-5.1); Sodium 137 mMol/L (136-145); eGFR 52 See Note
[2025-03-13] MEDS: POLYETHYLENE GLYCOL 17 GM PACKET PO (08:06)
[2025-03-13] MEDS: FINASTERIDE 5 MG TABLET PO (08:07)
[2025-03-13] MEDS: LOSARTAN POTASSIUM 25 MG TABLET 50 MG PO (08:07)
--- NOTE | 2025-03-13 10:18 | PC.SS ---
SS attempted to contact patient's daughter Rosibel in order to complete initial assessment., SS left Voicemail.
--- NOTE | 2025-03-13 12:35 | PC.SS ---
Patient Barak Fernandez is a 75 Year old male admitted for UTI. SS contacted patient's daughter, Rosibel in regards to discharge plan. Patient lives at home with family. Rosibel Jarett reports she is surrogate decision maker [phone]. Prior to admission patient was able to ambulate independently and able to complete all ADL's independently. Patients PCP is Toby Rhodes and Choice of pharmacy is [facility]. At time of discharge patient will return back home. Family will provide transportation. Next of Kin: Daughter, Rosibel Denson Discharge Plan: Home
--- NOTE | 2025-03-13 14:42 | PC.SS ---
SS Follow up note; Patient is on IV ABX. Urology Consult pending, Patient will discharge home when medically cleared.
--- NOTE | 2025-03-13 18:52 | ESPR_ITS ---
<Statement entered by Igor Yañez MD - 03/15/25 07:57> Senior Resident Attestation: I supervised/discussed management plan with customer operations intern physician Dr. Serrano, and was involved in the care of this patient. I personally saw and examined the patient and discussed the assessment and plan with the entire medicine team, including my attending. I agree with the assessment and plan as documented. Patient's care was discussed with attending physician, Dr. Mcgee. Igor Yañez MD PGY-2. Documentation for date of: 03/13/25 Subjective Subjective Interval history: No acute overnight events reported. Patient seen and examined at bedside this morning. Patient reports significant improvement of his symptoms however per nurse at bedside patient had an urine output of 390 cc which had gross hematuria. Patient denied any dysuria or burning however patient underwent recent prostate biopsy with urologist. Patient blood cultures also came back with GNR and currently patient is on Zosyn. Patient has remained afebrile since midnight last night. Vitals are stable significant labs include creatinine 1.4. Patient has no complaints right now. Exam Vital Signs Temp Pulse Resp BP Pulse Ox O2 Del Method 97.2 F 70 19 120/56 L 98 Room Air 03/13/25 16:00 03/13/25 16:00 03/13/25 16:00 03/13/25 16:00 03/13/25 16:00 03/13/25 16:00 Narrative Exam GENERAL: A&Ox3 . well groomed, eldery male, calm and cooperative NEURO: no focal neurological deficits HEENT: Atraumatic, Normocephalic. mucous membranes moist. Eyes open, symmetrical, & clear HEART: Normal Heart Sounds LUNGS: Clear to auscultation with no wheezing or crackles. ABDOMEN: soft, non-distended, non-tender, bowel sounds heard, no guarding or rebound tenderness SKIN: No Rash or ecchymoses EXTREMITIES: No edema, tenderness, able to move all 4 extremities, pedal pulses palpated Objective Labs 03/14/25 04:54 03/14/25 04:54 Labs: Laboratory Results - last 24 hr 03/13/25 04:45 WBC 10.1 RBC 4.10 L Hgb 11.0 L Hct 33.6 L MCV 82 MCH 26.8 MCHC 32.7 RDW Std Deviation 41.1 Plt Count 127 L Neut % (Auto) 85 H Lymph % (Auto) 8 L [place] % (Auto) 7 Eos % (Auto) 0 Baso % (Auto) 0 Neut # (Auto) 8.6 H Lymph # (Auto) 0.8 L [place] # (Auto) 0.7 Eos # (Auto) 0.0 Baso # (Auto) 0.0 Immature Gran # (Auto) 0.04 H Absolute Nucleated RBC 0.00 Immature Gran % 0 Nucleated RBC % 0 Sodium 137 Potassium 3.9 D Chloride 106 Carbon Dioxide 24.7 Anion Gap 6 L BUN 15 Creatinine 1.4 H Estim Creat Clear Calc 42.8 L eGFR 52 L BUN/Creatinine Ratio 11 L Glucose 117 H Calculated Osmolality 275 Calcium 8.7 Quality Measures Quality Measures none Advance care planning discussed with:: patient Assessment & Plan Assessment Current Active Medications: Generic Name Dose Route Start Last Admin Trade Name Freq PRN Reason Stop Dose Admin Acetaminophen 650 mg 03/12/25 23:31 Acetaminophen 325 Mg Tablet PO 04/11/25 00:09 Q6H PRN Fever >100.3 or pain 1-3 Hydrocodone Bitart/Acetaminophen 1 tab 03/12/25 01:53 Hydrocodone/Apap 5/325 Tablet PO 03/17/25 01:52 Q6HR PRN Pain 4-6 Finasteride 5 mg 03/12/25 09:00 03/13/25 08:07 Finasteride 5 Mg Tablet PO 04/11/25 08:59 5 mg QDAY SUN Administration Hydralazine HCl 10 mg 03/12/25 01:53 Hydralazine Inj 20 Mg/Ml Vial IV 04/11/25 01:59 Q3H PRN SBP >180mmHg Piperacillin/Tazobactam/Dextrose 3.375 gm in 50 mls @ 100 mls/hr 03/12/25 00:11 03/13/25 13:59 Zosyn IV 03/19/25 00:10 100 mls/hr Q8HR SUN Administration Losartan Potassium 50 mg 03/12/25 09:00 03/13/25 08:07 Losartan Potassium 25 Mg Tablet PO 04/11/25 08:59 50 mg QDAY SUN Administration Ondansetron HCl 4 mg 03/12/25 01:53 Ondansetron Inj 2 Mg/Ml Inj 2 Ml IV 04/11/25 01:52 Q6HR PRN NAUSEA OR VOMITING Protocol Polyethylene Glycol 17 gm 03/12/25 09:00 03/13/25 08:06 Polyethylene Glycol 17 Gm Packet PO 04/11/25 08:59 17 gm QDAY SUN Administration Plan A 75-year-old male [place] patient with past medical history of hypertension, GERD, BPH, presented to the ED due to chills and shakiness started at 7 PM on 11 March 2025. patient that on Thursday patient underwent prostate biopsy by Dr. York. Other than mild pain and bloody urine patient tolerated the procedure well. However today patient started to feel generalized weakness and severe shakiness. Patient was admitted for tx of Sepsis 01/01 to UTI #Sepsis 01/01 #UTI #GNR bacteremia #Hematuria (post-TRUS biopsy) #Hx of Benign Prostatic Hyperplasia Patient has recenty had prostate biopsy as he was found to have PSA level of 6.9 as per daughter. Patient started to develop severe chills and shakiness on Thursday. Fever 101.5, HR of chills, shaking, post-procedural state; mild leukocytosis WBC 10, hematuria UA RBC 5598, pyuria WBC 8, Procalcitonin 0.12, LA 1.2 history of finasteride use Plan: - Start the patient on Zosyn (as per Dr York Recs) 03/12- - Blood cultures grew GNR - Urine culture no growth - Urology to follow for post-TRUS biopsy infectious complication - Continue finasteride #Hx of Hypertension Assessment: Chronic; elevated BP on presentation (162/52) without acute end- organ damage Plan: - Continue home losartan - Hydralaine 10mg IV PRN #1st Degree heart block EKG showed sinus tachycardia, however [place] interval was 231. Which indicate first-degree heart block. #CKD Stage 3a Patient unaware of his Kidney function CKD, Noticed to have S.cr of 1.3 which is his basline, eGFR of 57 Plan - Avoid nephrotoxic meds - Consider following up with a museum service scheduler o/p #hx of GERD Plan - Start patient on Pantoprazole 40mg IV qday Hospital Maintenance: FEN:Cardiac diet DVT ppx:SCD GI ppx:Protonix IV lines:PIV Prince:None Code status:F/C Dispo:Med-Tele Assessment and plan discussed with my senior resident & attending physician Dr. Everardo Serrano (PGY-1)- Internal medicine resident Attending Provider Attestation/Addendum I attest that I was physically present for the evaluation, physical examination, lab and imaging review of the patient with the residents. I discussed the case with the residents and agree with the findings and plans of care as documented above. At bedside today, patient states she is feeling well and does not have any new complaints. Noted to have blood in his urine. Blood culture grew gram-negative rods. Continues to be on IV Zosyn. Awaiting urology recommendations and final blood culture results. Sharita Mcgee MD
[2025-03-14] VITALS: BP 156/75; PULSE 60; PULSE 65; RESP 17; TEMP 36.8; O2SAT 95
[2025-03-14 04:00] VITALS: BP 143/80; PULSE 62; PULSE 67; RESP 17; TEMP 36.9; O2SAT 97
[2025-03-14] MEDS: PIPER/TAZO 3.375 GM PREMIX 3.375 GM/50 ML BAG IV ×2 (05:27→13:31)
[2025-03-14 06:03] LABS: Basophils % (Auto) 0 % (0-2.5); Eosinophils # (Auto) 0.1 Thou/mm3 (0.0-0.5); Eosinophils % (Auto) 1 % (0-10); Hemoglobin 11.6 g/dL (13.5-16.0); Immature Granulocytes % (Auto) 0 % (0-0); Immature Granulocytes Auto 0.01 Thou/mm3 (0.00-0.00); Lymphocytes # (Auto) 1.1 Thou/mm3 (1.0-4.8); Lymphocytes % (Auto) 16 % (10-50); Mean Corpuscular HGB Conc 33.1 g/dl (31.0-37.0); Mean Corpuscular Hemoglobin 26.9 pg (25.0-35.0); Mean Corpuscular Volume 81 fL (80-100); Monocytes # (Auto) 0.7 Thou/mm3 (0.0-0.8); Monocytes % (Auto) 10 % (0-12); Neutrophils # (Auto) 5.2 Thou/mm3 (1.8-7.7); Neutrophils % (Auto) 73 % (37-80); Nucleated Red Blood Cell % 0 /100 WBC (0); Platelet Count 148 Thou/mm3 (140-440); RDW Standard Deviation 41.1 fL (35.1-43.9); Red Blood Count 4.32 Miln/mm3 (4.50-5.90); White Blood Count 7.2 Thou/mm3 (3.8-10.6)
[2025-03-14 06:23] LABS: Anion Gap 9 (7-16); BUN/Creatinine Ratio 9 Ratio (12-20); Blood Urea Nitrogen 13 mg/dL (9-23); Carbon Dioxide 24.6 mMol/L (20.0-31.0); Chloride 103 mMol/L (98-107); Creatinine (Component) 1.4 mg/dL (0.6-1.3); Potassium 4.1 mMol/L (3.4-5.1); Sodium 137 mMol/L (136-145)
[2025-03-14 06:24] LABS: Calcium 9.1 mg/dL (8.3-10.6); Estimated Creatinine Clearance 42.8 mL/min (>60); Glucose 99 mg/dL (74-106); Osmolality,Calculated 273 (275-295); eGFR 52 See Note
[2025-03-14 08:00] VITALS: BP 163/62; PULSE 62; RESP 18; TEMP 36.7; O2SAT 96
[2025-03-14 08:15] VITALS: BP 163/62; PULSE 62
[2025-03-14] MEDS: FINASTERIDE 5 MG TABLET PO (08:15)
[2025-03-14] MEDS: LOSARTAN POTASSIUM 25 MG TABLET 50 MG PO (08:15)
[2025-03-14 12:33] VITALS: BP 149/80; PULSE 61; RESP 20; TEMP 36.9; O2SAT 95
--- NOTE | 2025-03-14 13:20 | CHAP ---
9:30 AM Visited by spiritual care volunteer Provided prayer for Patient.
[2025-03-14 16:00] VITALS: BP 144/76; PULSE 66; RESP 18; TEMP 36.8; O2SAT 95
[2025-03-14] MEDS: FOSFOMYCIN PWD 3 GM PACKET (NON-FORMULARY) PO (16:07)
--- NOTE | 2025-03-14 16:39 | PD.RESDS ---
Planned Discharge Date 03/14/25 DS: Providers Provider Date of admission: 03/12/25 00:10 Primary care physician: Toby Rhodes MD Admitting Provider: Al Parker MD Attending Provider on Admission: Sharita Mcgee MD Consults: 03/12/25 01:56 Consult to Urology Stat Comment: Sepsis S/P Prostate biopsy Consulting Provider: Prem York 03/12/25 03:14 Referral [place] Routine Comment: Referral Respiratory Therapy Routine Comment: Attending Provider on DC: Mane Serrano MD Discharging Provider: Mane Serrano MD DS: Diagnosis Problem List Completed Was Problem List Reviewed/Reconciled?: Yes Hospital Course Hospital Course Hospital course: Mr. Fernandez is a 75-year-old male Citizen Of [place] patient with past medical history of hypertension, GERD, BPH, presented to [facility] ED on 03/12/25 due to chills and shakiness. On 03/11 patient underwent prostate biopsy by Dr. York. On admission Pt was found to have fever and blood cultures are positive for ESBL E. Coli. Pt was started on IV antibiotics. During hospitalization Pt also had hematuria but denied dysuria or burning. Pt's hematuria resolved and is hemodynamically stable to be discharged home to self care. Pt also received 1 dose of fosfomycin before discharge. Pt is advised to follow up with Dr. York with in 1 week. Discharge Recommendations -Please see your primary care physician within 1 week after discharge and repeat labs including CBC adn renal panel -Please see your urologist Dr. York within 1 week to discuss your blood cultures and blood in your urine -Take your medications as prescribed -If your symptoms worsen or return please return to the ED promptly Hospitalization Diagnosis #Sepsis 2/2- resolved #UTI #GNR bacteremia #Hematuria (post-TRUS biopsy) #Hx of Benign Prostatic Hyperplasia #Hx of Hypertension #1st Degree heart block #CKD Stage 3a Assessment and plan discussed with my attending physician Dr. Everardo Serrano (PGY-1)- Internal medicine resident Time Spent with Patient Time attestation: Total time spent providing and/or coordinating discharge services: Time spent: Less than 30 minutes Exam Vital Signs Temp Pulse Resp BP Pulse Ox O2 Del Method 98.3 F 66 18 144/76 H 95 Room Air 03/14/25 16:00 03/14/25 16:00 03/14/25 16:00 03/14/25 16:00 03/14/25 16:00 03/14/25 16:00 Narrative Exam GENERAL: A&Ox3 . well groomed, eldery male, calm and cooperative NEURO: no focal neurological deficits HEENT: Atraumatic, Normocephalic. mucous membranes moist. Eyes open, symmetrical, & clear HEART: Normal Heart Sounds LUNGS: Clear to auscultation with no wheezing or crackles. ABDOMEN: soft, non-distended, non-tender, bowel sounds heard, no guarding or rebound tenderness SKIN: No Rash or ecchymoses EXTREMITIES: No edema, tenderness, able to move all 4 extremities, pedal pulses palpated Discharge Plan Plan Patient Disposition: HOME (Self Care) Disposition Comment: Admitted to Dr. Parker Care Plan Goals: -Please see your primary care physician within 1 week after discharge and repeat labs including CBC adn renal panel -Please see your urologist Dr. York within 1 week to discuss your blood cultures and blood in your urine -Take your medications as prescribed -If your symptoms worsen or return please return to the ED promptly Prescriptions/Referrals Prescriptions/Med Rec: Continued losartan 50 mg tablet 50 mg PO DAILY Patient Comments: TAKE 1 TABLET BY MOUTH EVERY DAY FOR 90 DAYS pantoprazole [Protonix] 40 mg tablet,delayed release (DR/EC) 40 mg PO QAM finasteride 5 mg tablet 5 mg PO DAILY Patient Comments: TAKE 1 TABLET BY MOUTH EVERY DAY FOR 90 DAYS Discontinued ciprofloxacin HCl [Cipro] 500 mg tablet 500 mg PO BID acetaminophen 500 mg tablet 1,000 mg PO Q6H PRN (Reason: pain) Patient Comments: TAKE 1 TABLET BY MOUTH EVERY 6 HOURS NEEDED FOR 7 DAYS Referrals: Toby Rhodes MD [Primary Care Provider] - Patient/Caregiver Discharge Instructions Education Materials: Hematuria: Possible Causes, Anatomy of the Male Urinary Tract, ED Hematuria Print Language: fatuma ronquillo) Stand Alone Forms: Ayana Award Info., Patient Portal Info Letter Discharge Order Discharge Orders: Discharge (Routine); Ordered 03/14/25 Ordered By: Mane Serrano Quality Discharge Quality Measures none Attestestation MD Attestation I attest that I was physically present for the evaluation, physical examination, lab and imaging review of the patient with the residents. I discussed the case with the residents and agree with the findings and plans of care as documented above. Sharita Mcgee MD
== END 2025-03-14 16:32 | disposition home or self-care (01) | DRG 872 ==
LOC: SERX 23:47 → SERHOLD 03-13 06:29 → S3SX 03-13 06:29
PROVIDERS: Physician Assistant; Student in an Organized Health Care Education/Training Program; Admitting Provider Internal Medicine; Emergency Provider Emergency Medicine; PCP Family Medicine; Visit Provider Student in an Organized Health Care Education/Training Program
DX: A41.51 Sepsis due to Escherichia coli [E. coli] (principal); N39.0 Urinary tract infection, site not specified; Z16.12 Extended spectrum beta lactamase (ESBL) resistance; K21.9 Gastro-esophageal reflux disease without esophagitis; N40.0 Benign prostatic hyperplasia without lower urinary tract symptoms; I12.9 Hypertensive chronic kidney disease with stage 1 through stage 4 chronic kidney disease, or unspecified chronic kidney disease; N18.31 Chronic kidney disease, stage 3a; I44.0 Atrioventricular block, first degree; R31.0 Gross hematuria; R50.82 Postprocedural fever; Z79.899 Other long term (current) drug therapy
CPT/HCPCS: 36415; 71046; 80048; 80053; 81001; 83036; 83605; 84145; 84484; 85025; 87040; 87077; 87086; 87186; 87400; 87811; 93005; 93225; 96361; 96365; 96375; 99285; J1885; J2543; J7030; A9270

== ENCOUNTER 2025-05-19 08:40 | Day surgery (SDC) | payer MEDICARE, MEDICAID, SELFPAY ==
--- NOTE | 2025-05-18 07:56 | EKG_ITS ---
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
[2025-05-18 08:52] VITALS: BMI 23.6
[2025-05-18 11:06] LABS: Basophils % (Auto) 1 % (0-2.5); Eosinophils # (Auto) 0.2 Thou/mm3 (0.0-0.5); Eosinophils % (Auto) 4 % (0-10); Hematocrit 40.6 % (41.0-53.0); Immature Granulocytes % (Auto) 0 % (0-0); Immature Granulocytes Auto 0.01 Thou/mm3 (0.00-0.00); Lymphocytes # (Auto) 1.7 Thou/mm3 (1.0-4.8); Lymphocytes % (Auto) 38 % (10-50); Mean Corpuscular Hemoglobin 26.9 pg (25.0-35.0); Mean Corpuscular Volume 84 fL (80-100); Monocytes # (Auto) 0.4 Thou/mm3 (0.0-0.8); Monocytes % (Auto) 8 % (0-12); Neutrophils # (Auto) 2.3 Thou/mm3 (1.8-7.7); Neutrophils % (Auto) 50 % (37-80); Nucleated Red Blood Cell % 0 /100 WBC (0); Platelet Count 222 Thou/mm3 (140-440); RDW Standard Deviation 42.6 fL (35.1-43.9); Red Blood Count 4.84 Miln/mm3 (4.50-5.90); White Blood Count 4.6 Thou/mm3 (3.8-10.6)
[2025-05-18 11:11] LABS: Alanine Aminotransferase 15 U/L (10-49); Albumin, Serum 4.6 gm/dL (3.4-4.8); Albumin/Globulin Ratio 1.5 (1.2-2.2); Alkaline Phosphatase 54 U/L (46-116); Anion Gap 8 (7-16); Aspartate Amino Transferase 23 U/L (0-34); BUN/Creatinine Ratio 8 Ratio (12-20); Bilirubin,Total 1.2 mg/dL (0.3-1.2); Blood Urea Nitrogen 11 mg/dL (9-23); Calcium 10.3 mg/dL (8.3-10.6); Calcium (Corrected) 10.3 mg/dL (8.5-10.1); Carbon Dioxide 27.8 mMol/L (20.0-31.0); Chloride 101 mMol/L (98-107); Creatinine (Component) 1.4 mg/dL (0.6-1.3); Estimated Creatinine Clearance 42.8 mL/min (>60); Glucose 115 mg/dL (74-106); Osmolality,Calculated 274 (275-295); Potassium 4.3 mMol/L (3.4-5.1); Sodium 137 mMol/L (136-145); Total Protein 7.6 gm/dL (5.7-8.2); eGFR 52 See Note
[2025-05-18 11:12] LABS: Partial Thromboplastin Time 33.5 Seconds (22.0-36.0); Prothrombin Time 11.1 Seconds (9.0-12.2)
[2025-05-19 09:15] VITALS: BP 153/80; PULSE 56; RESP 12; TEMP 36.3; O2SAT 97; BMI 23.2
--- NOTE | 2025-05-19 09:31 | SUR.PREOP ---
Patient expressed gratitude for prayer before their procedure.
--- NOTE | 2025-05-19 13:48 | ESOP_ITS ---
Date of Procedure 05/19/25 Pre Op Diagnosis Soft tissue mass over the right thigh and left shoulder Post Op Diagnosis Same Procedure Excision of the soft tissue mass over the right thigh and left shoulder Findings Patient was found to have 8 cm mass over the right thigh which was subcutaneous lipoma on removed. The other mass over the left shoulder was about 5 cm in diameter Procedure Description After the patient was brought to the operating room he was given sedation by the anesthesiologist. Then the area over the right thigh and the left shoulder was washed with ChloraPrep solution draped in a sterile manner separately. Timeout was performed. Then injected 1% Xylocaine with epinephrine and sodium bicarbonate over the left thigh mass in a longitudinal manner. The knee made incision for about 8 cm over the right thigh and removed the subcutaneous mass which was well-circumscribed. After it was removed bleeding positive well- controlled with cautery. I used a row 3-0 chromic suture to hold the subcutaneous tissue in place. Then skin was approximated with 4-0 Monocryl subcuticular stitch and dressing was applied with Adaptic and 4 x 4 gauze. Then attention was turned onto the left shoulder mass which was about 5 cm in diameter. This was also approached a similar way using 1% Xylocaine and epinephrine and sodium bicarbonate. Transverse incision was made and subcutaneous tissue was dissected out and the mass was removed in piecemeal because it was not well-circumscribed. The dissection went all the way up to t he muscles. Then this skin was closed with 4-0 Monocryl subcuticular stitch and a dressing was applied with 4 x 4 gauze and Adaptic. Patient tolerated procedure well Anesthesia MAC Pathology / specimen Other (Mass from the right thigh and left shoulder) Estimated Blood Loss 30 Surgeon Kiara Betancourt MD Surgical Staff Operation Date: 05/19/25 11:15 <No data on this case meets the specified criteria>
[2025-05-19 13:50] VITALS: BP 140/62; PULSE 74; RESP 17; TEMP 36.4; O2SAT 98
--- NOTE | 2025-05-19 13:50 | SUR.PHASEII ---
1350: Pt. AAOx4, vitals stable, breathing unlabored, no complaint of pain or nausea, dressing to left shoulder CDI, dressing to right thigh CDI, no active bleed noted, report received from Yunior FLETCHER and MD Reyna.
[2025-05-19 13:55] VITALS: BP 114/80; PULSE 68; RESP 17; TEMP 36.6; O2SAT 100
[2025-05-19 14:00] VITALS: BP 141/65; PULSE 66; RESP 17; TEMP 36.7; O2SAT 100
[2025-05-19 14:05] VITALS: BP 158/71; PULSE 61; RESP 15; TEMP 36.7; O2SAT 98
[2025-05-19 14:15] VITALS: BP 154/81; PULSE 61; RESP 16; TEMP 36.6; O2SAT 98
--- NOTE | 2025-05-19 14:25 | SUR.PHASEII ---
1425: Pt. AAOx4, vitals stable, breathing unlabored, no complaint of pain or nausea, dressing to left shoulder CDI, dressing to right thigh CDI, no active bleed noted, pt. tolerated sips of water well, pt. ambulated to wheelchair with steady gait and no assist, no complications. Gave discharge instructions to the pt. and his ride, both verbalized understanding and had no further questions. Pt. left with all personal belongings.
== END 2025-05-19 14:25 | disposition home or self-care (01) ==
PROVIDERS: PCP Family Medicine; Referring Provider Surgery; Visit Provider Surgery
PROC: (CPT 23071; principal; 2025-05-19 11:00)
DX: D17.23 Benign lipomatous neoplasm of skin and subcutaneous tissue of right leg (principal); D17.22 Benign lipomatous neoplasm of skin and subcutaneous tissue of left arm; Z01.810 Encounter for preprocedural cardiovascular examination
CPT/HCPCS: 23071; 27337; 36415; 80053; 85025; 85610; 85730; 93005; A4217; A4649; J1885; J2250; J2704; J3010; J3490

== ENCOUNTER → 2025-11-16 | Outpatient (CLI) | payer MEDICARE, MEDICAID, SELFPAY ==
[2025-11-16 12:16] LABS: Prostate Specific Antigen 2.70 ng/mL (0-4.00)
== END | disposition home or self-care (01) ==
LOC: COPL 10:40
PROVIDERS: PCP Family Medicine; Referring Provider Surgery; Visit Provider Surgery
DX: N40.1 Benign prostatic hyperplasia with lower urinary tract symptoms (principal)
CPT/HCPCS: 36415; 84153